=== PATIENT | male | born 1985 | race Caucasian/White ===

== ENCOUNTER 2018-05-05 14:45 | Emergency (ER) | payer OTHER | END 2018-05-05 16:46 | disposition home or self-care (01) | LOC: M ED 14:45 | DX: S80.01XA Contusion of right knee, initial encounter (principal); V49.49XA Driver injured in collision with other motor vehicles in traffic accident, initial encounter; Y92.410 Unspecified street and highway as the place of occurrence of the external cause; Z79.899 Other long term (current) drug therapy | CPT/HCPCS: 73564 ==

== ENCOUNTER → 2021-01-09 | Outpatient (REF) | payer OTHER ==
[~2021-01-09] MED LIST: ALEV220T26 PO; TRAZ1TAB14 PO; ZOLO100T PO
--- NOTE | 2021-01-09 09:29 | REP ---
INDICATION: ARTHRITIS COMPARISON: None. TECHNIQUE: AP, lateral, bilateral oblique views left hand. FINDINGS: The osseous structures and joint spaces are intact and normal. There is no evidence for acute fracture or dislocation. Surrounding soft tissues are unremarkable. No subcutaneous emphysema or radiodense foreign body. No significant osteoarthritic or inflammatory arthritic changes appreciated. IMPRESSION: Normal age-appropriate right hand radiographs. <Electronically signed by Madhav Hansen > 01/09/21 [id number]
--- NOTE | 2021-01-09 09:42 | REP ---
INDICATION: ARTHRITIS COMPARISON: None. TECHNIQUE: AP, lateral, bilateral oblique views right hand. FINDINGS: The osseous structures and joint spaces are intact and normal. There is no evidence for acute fracture or dislocation. Surrounding soft tissues are unremarkable. No subcutaneous emphysema or radiodense foreign body. No significant osteoarthritic or inflammatory arthritic changes appreciated. IMPRESSION: Normal age-appropriate left hand radiographs. <Electronically signed by Madhav Hansen > 01/09/21 0966
== END ==
LOC: M PLAIMG 08:52 → EDSTATUS 08:56 → M PLAIMG 08:57
PROVIDERS: ATTEND Internal Medicine
DX: M19.90 Unspecified osteoarthritis, unspecified site (principal)